=== PATIENT | female | born 1985 | race Caucasian/White ===

== ENCOUNTER 2017-04-22 11:58 | Inpatient (IN) | payer BC ==
[~2017-04-22] VITALS: Ht 170.2 cm; Wt 90.0 kg
[~2017-04-22 11:58] MED LIST: NO HOME MEDICATIONS
[2017-05-30] VITALS (19 sets, daily range): BP systolic 97–135; BP diastolic 57–88; PULSE 71–98; TEMP 97.6–98.4
[2017-05-30 06:51] LABS: BASO % 0.1 % (0.0-2.0); EOS # 0.1 (0.0-0.7); EOS % 0.9 % (0-4.0); GRAN # 5.4 (1.4-6.5); GRAN % 61.6 % (42.2-75.2); LYMPH # 2.7 (1.2-3.4); MEAN CELL VOLUME 83 fl (80.0-100.0); MEAN CORPUSCULAR HGB CONC 33 g/dl (33.0-37.0); MEAN PLATELET VOLUME 9.8 fl (7.4-10.4); MONO # 0.5 (0.1-0.6); MONO % 5.8 % (1.7-9.3); PLATELET COUNT 217 K/mm3 (130-400); RED BLOOD COUNT 3.78 M/mm3 (4.10-5.30); WHITE BLOOD COUNT 8.8 K/mm3 (4.8-10.8)
[2017-05-30 07:04] LABS: HEMATOCRIT 31.3 % (37.0-47.0); HEMOGLOBIN 10.4 g/dl (12.5-16.0); MEAN CORPUSCULAR HEMOGLOBIN 28 pg (27.0-31.0)
[2017-05-31 02:15] VITALS: BP 115/54; PULSE 72; TEMP 97.6
[2017-05-31 05:10] VITALS: BP 116/59; PULSE 79; TEMP 98.3
[2017-05-31 08:15] VITALS: BP 125/66; PULSE 79; TEMP 98
[2017-05-31 16:00] VITALS: BP 136/92; PULSE 74
[2017-06-01 07:00] VITALS: BP 132/76; PULSE 73; TEMP 97.8
[2017-06-01] MEDS ORDERED: IBU800 M1 PO (10:18)
[2017-06-01] MEDS ORDERED: PERCOCET 325 MG1 TA2 PO (10:18)
== END 2017-06-01 10:45 | disposition home or self-care (01) | DRG 766 ==
LOC: OB 05-30 05:26 → EDSTATUS 06-06 06:43 → LDRO 06-06 11:58
PROVIDERS: Obstetrics & Gynecology
PROC: 10D00Z1 Extraction of Products of Conception, Low, Open Approach (ICD-10-PCS; principal; 2017-05-30)
PROC: 0UB70ZZ Excision of Bilateral Fallopian Tubes, Open Approach (ICD-10-PCS; 2017-05-30)
DX: O34.211 Maternal care for low transverse scar from previous cesarean delivery (principal); N85.8 Other specified noninflammatory disorders of uterus; Z3A.39 39 weeks gestation of pregnancy; Z37.0 Single live birth; Z40.09 Encounter for prophylactic removal of other organ
CPT/HCPCS: J0690; J1885; J2250; J2270; J2370; J2405; J2590; J7120